=== PATIENT | male | born 1985 | race Caucasian/White ===

== ENCOUNTER 2022-05-06 08:50 | Inpatient (IN) | payer MEDICAID, OTHER ==
[~2022-05-06] VITALS: Ht 170.2 cm; Wt 98.0 kg
[2022-05-06 09:28] LABS: Basophils # (auto) 0 10 ^3/uL (0-0.2); Basophils % (auto) 0.3 % (0.0-2.0); Eosinophils # (auto) 0 10 ^3/uL (0-0.8); Eosinophils % (auto) 0.3 % (0.0-7.0); Hematocrit 46.8 % (41.0-53.0); Hemoglobin 15.3 g/dL (13.5-17.5); Lymphocytes # (auto) 1.1 10 ^3/uL (0.4-5.4); Mean Corpuscular Hgb Conc. 32.6 g/dL (32.0-36.0); Monocytes # (auto) 0.6 10 ^3/uL (0-1.3); Monocytes % (auto) 4.8 % (0.0-12.0); Neutrophils % (auto) 85.6 % (37.0-80.0); Nucleated Red Blood Cells % 0.1 %; Red Blood Cells 5.09 10^6/uL (4.5-5.90); Red Cell Distribution Width 14.7 % (11.8-14.3); White Blood Cell 11.7 10^3/uL (4.4-10.8)
[2022-05-06 09:45] LABS: Potassium 4.6 mmol/L (3.5-5.1)
[2022-05-06 09:51] LABS: Albumin 3.6 g/dL (3.4-5.0); BUN/Creatinine Ratio 15.4; Bilirubin, Total 0.4 mg/dL (0.2-1.0); Calcium 8.9 mg/dL (8.5-10.1); Total Protein 7.4 g/dL (6.4-8.2)
[2022-05-06] MEDS ORDERED: DexAMETHasone SOD PHOS 10MG/1ML VIAL INJ IV ONE (11:15)
[2022-05-06] MEDS ORDERED: ONDANSETRON HCL 4 MG/2 ML VIAL IV PRN (15:00)
[2022-05-06] MEDS ORDERED: ACETAMINOPHEN 325 MG TAB PO PRN (15:00)
[2022-05-06] MEDS ORDERED: DOCUSATE SOD 100 MG CAP PO PRN (15:00)
[2022-05-06] MEDS ORDERED: MORPHINE SULFATE INJ 2 MG/ml SYRG IV PRN (15:00)
[2022-05-06] MEDS: SODIUM CHLORIDE 0.9% 1,000 ML IV SCH (16:02)
[2022-05-06] MEDS: cefTRIAXone 1GM/50ML D5W 50 ML IV SCH (16:03)
[2022-05-06] MEDS ORDERED: DEXTROSE (50%) 50ML SYRG IV PRN (18:15)
[2022-05-06] MEDS: AZITHROMYCIN 500MG/ 250ML 250 ML IV SCH (18:33)
[2022-05-06] MEDS: HYDROcodone-ACET 5/325MG TAB PO PRN (20:34)
[2022-05-06] MEDS: ACCU-CHEK COMFORT CURVE STRIP VI SCH (22:03)
[2022-05-06] MEDS: ASCORBIC ACID 500 MG TAB PO SCH (22:04)
[2022-05-06] MEDS: InsuLIN REG 1unit/0.01ml Soln (100units/ml) SC SCH (22:04)
[2022-05-06 23:53] VITALS: BP 122/79
[2022-05-07 05:00] VITALS: BP 104/62
[2022-05-07 06:17] LABS: Basophils # (auto) 0 10 ^3/uL (0-0.2); Basophils % (auto) 0.1 % (0.0-2.0); Eosinophils # (auto) 0 10 ^3/uL (0-0.8); Eosinophils % (auto) 0.1 % (0.0-7.0); Hematocrit 42.7 % (41.0-53.0); Hemoglobin 14.4 g/dL (13.5-17.5); Lymphocytes # (auto) 2.5 10 ^3/uL (0.4-5.4); Lymphocytes % (auto) 28.9 % (10.0-50.0); Mean Corpuscular Hemoglobin 31.4 pg (28.0-32.0); Mean Corpuscular Hgb Conc. 33.6 g/dL (32.0-36.0); Mean Corpuscular Volume 93.4 fL (80.0-100.0); Monocytes # (auto) 0.7 10 ^3/uL (0-1.3); Monocytes % (auto) 7.9 % (0.0-12.0); Neutrophils # (auto) 5.6 10 ^3/uL (1.6-8.6); Red Blood Cells 4.57 10^6/uL (4.5-5.90); Red Cell Distribution Width 14.7 % (11.8-14.3); White Blood Cell 8.8 10^3/uL (4.4-10.8)
[2022-05-07 06:39] LABS: Albumin 3.4 g/dL (3.4-5.0); BUN/Creatinine Ratio 26.7; Calcium 8.9 mg/dL (8.5-10.1); Potassium 4.6 mmol/L (3.5-5.1)
[2022-05-07] MEDS: ACCU-CHEK COMFORT CURVE STRIP VI SCH ×2 (06:40→12:53)
[2022-05-07 06:42] LABS: Bilirubin, Total 0.3 mg/dL (0.2-1.0); Total Protein 6.6 g/dL (6.4-8.2)
[2022-05-07] MEDS: InsuLIN REG 1unit/0.01ml Soln (100units/ml) SC SCH ×2 (06:45→12:55)
[2022-05-07] MEDS: HYDROcodone-ACET 5/325MG TAB PO PRN (07:22)
[2022-05-07 09:00] VITALS: BP 110/65
[2022-05-07] MEDS ORDERED: ZINC SULFATE 220mg CAP or TAB PO SCH (10:00)
[2022-05-07] MEDS ORDERED: ENOXAPARIN SOD 40 MG/0.4 ML SYRINGE SC SCH (10:00)
[2022-05-07] MEDS ORDERED: MULTIPLE VITAMIN TAB PO SCH (10:00)
[2022-05-07] MEDS: ASCORBIC ACID 500 MG TAB PO SCH (10:06)
[2022-05-07] MEDS: cefTRIAXone 1GM/50ML D5W 50 ML IV SCH (10:07)
[2022-05-07] MEDS: AZITHROMYCIN 500MG/ 250ML 250 ML IV SCH (10:07)
[2022-05-07] MEDS: SODIUM CHLORIDE 0.9% 1,000 ML IV SCH (10:08)
[2022-05-07 13:00] VITALS: BP 111/67
[2022-05-07] MEDS ORDERED: ALBUTEROL SULF 2.5 MG/0.5ML(0.5%) NEB SOLN NEB PRN (16:00)
[2022-05-07] MEDS ORDERED: BEN2I PO (16:56)
[2022-05-07] MEDS ORDERED: HAL5T PO (16:56)
[2022-05-07] MEDS ORDERED: LURA40TA PO (16:56)
[2022-05-07] MEDS ORDERED: METF-370 PO (16:56)
[2022-05-07] MEDS ORDERED: ERTU15TA PO (16:56)
[2022-05-07] MEDS ORDERED: LORA-622 PO (16:56)
[2022-05-07] MEDS ORDERED: FAMO-12 PO (16:56)
[2022-05-07] MEDS ORDERED: DIVA500T13 PO (16:56)
[2022-05-07] MEDS ORDERED: SERT50TA19 PO (16:56)
[2022-05-07] MEDS ORDERED: LEVO50TA7 PO (16:56)
[2022-05-07] MEDS ORDERED: GABA300C10 PO (16:56)
[2022-05-07] MEDS ORDERED: MONT-8 PO (16:56)
[2022-05-07 17:06] VITALS: BP 122/79
[2022-05-07] MEDS ORDERED: DOXY-338 PO ×2 (17:15→17:16)
[2022-05-07] MEDS ORDERED: ALBU108A5 IN ×2 (17:15→17:16)
[2022-05-07] MEDS ORDERED: TROL10CR33 EX (17:20)
[2022-05-07] MEDS ORDERED: metFORMIN HYDROCHLORIDE 500 MG TAB PO SCH (18:00)
[2022-05-07] MEDS ORDERED: HALOPERIDOL 5 MG TAB PO SCH (22:00)
[2022-05-07] MEDS ORDERED: VALPROIC ACID 250 MG/5 ML ORAL SOLN PO SCH (22:00)
[2022-05-07] MEDS ORDERED: GABAPENTIN 300 MG CAP PO SCH (22:00)
[2022-05-07] MEDS ORDERED: BENZTROPINE MESYLATE (1MG/ML) 2ML VIAL IM SCH (22:00)
[2022-05-07] MEDS ORDERED: MONTELUKAST SODIUM 10 MG TAB PO SCH (22:00)
[2022-05-08] MEDS ORDERED: LEVOTHYROXINE SODIUM 50 MCG TAB PO SCH (07:00)
[2022-05-08] MEDS ORDERED: SERTRALINE HCL 50 MG TAB PO SCH (10:00)
[2022-05-08] MEDS ORDERED: LORATADINE 10 MG TAB PO SCH (10:00)
[2022-05-08] MEDS ORDERED: FAMOTIDINE 20 MG TAB PO SCH (10:00)
== END 2022-05-07 18:30 | disposition home or self-care (01) | DRG 203 ==
LOC: ER 08:50 → EDBD 08:50 → TELE 14:55 → TELE-EAST 23:08
PROVIDERS: ADMIT Internal Medicine; ATTEND Hospitalist
DX: M94.0 Chondrocostal junction syndrome [Tietze] (principal); E11.9 Type 2 diabetes mellitus without complications; Z20.822 Contact with and (suspected) exposure to COVID-19; Z79.84 Long term (current) use of oral hypoglycemic drugs
CPT/HCPCS: 36415; 71045; 80053; 82962; 84484; 85025; 85379; 93005; 96365; 96366; 96367; 96372; 96375; G0378; J0696; J1100; J1815